=== PATIENT | female | born 1985 | race Caucasian/White ===

== ENCOUNTER → 2024-02-13 13:54 | Outpatient (REF) | payer OTHER, SELFPAY | LOC: RAD 13:54 | PROVIDERS: ATTENDING PHYSICIAN Advanced Practice Midwife | DX: R10.2 Pelvic and perineal pain (principal) | CPT/HCPCS: 76830; 76856 ==

== ENCOUNTER → 2025-01-13 13:56 | Outpatient (REF) | payer OTHER, SELFPAY | LOC: PNTC 13:56 | PROVIDERS: ATTENDING PHYSICIAN Obstetrics & Gynecology | DX: O48.0 Post-term pregnancy (principal) | CPT/HCPCS: 59025 ==

== ENCOUNTER 2025-01-13 16:20 | Inpatient (IN) | payer OTHER, SELFPAY ==
[2025-01-13 16:35] VITALS: BP 130/83; BMI 29.2
[2025-01-13 17:33] LABS: % Basophils 0.3 % (0-2); % Eosinophils 1.4 % (0-6); % Immature Granulocytes 0.6 % (0-0.5); % Lymphocytes 20.7 % (20.5-51.1); % Monocytes 4.5 % (1.7-9.3); % Neutrophils 72.5 % (42.2-75.2); Absolute Eosinophils 0.2 10^3/uL (0-0.7); Absolute Immature Granulocytes 0.1 10^3/uL (0-0.05); Absolute Lymphocytes 2.3 10^3/uL (1.2-3.4); Absolute Monocytes 0.5 10^3/uL (0.1-0.6); Hematocrit 35.6 % (37.0-47.0); Hemoglobin 12.5 g/dL (12.0-16.0); Mean Corp Hgb Conc. 35.1 g/dL (33.0-37.0); Mean Corpuscular Hgb 28.9 pg (27.0-31.0); Mean Corpuscular Volume 82.2 fL (81.0-99.0); Mean Platelet Volume 9.4 fL (7.4-10.4); Nucleated Red Blood Cells % 0 %; Platelet Count 233 10^3/uL (130-400); Red Blood Cell Count 4.33 10^6/uL (4.20-5.40); Red Cell Dist. Width 13.1 % (11.5-14.5)
[2025-01-13] MEDS: CYTOTEC 25 MICROGRAM VAG (17:41)
[2025-01-13] MEDS: LR 1000 IV (18:32)
[2025-01-13] MEDS: TYLENOL 1000 MG PO (20:20)
[2025-01-13] MEDS: CYTOTEC 50 MICROGRAM PO (21:58)
[2025-01-14] MEDS: CYTOTEC 50 MICROGRAM PO ×2 (01:59→05:56)
[2025-01-14] MEDS: STADOL 1 MG IV ×2 (03:45)
[2025-01-14] MEDS: TYLENOL 1000 MG PO (06:00)
[2025-01-14] MEDS: LR 1000 IV ×3 (08:30→16:05)
[2025-01-14] MEDS: FENTANYL/BUPIVACAINE 100 EPIDURAL ×2 (09:10→16:32)
[2025-01-14] MEDS: SUBLIMAZE 100 MCG EPIDURAL (09:10)
[2025-01-14] MEDS: PITOCIN 30 UNITS/NSS 500 ML IV (10:00)
[2025-01-14] MEDS: MOTRIN 600 MG PO (22:23)
[2025-01-14] MEDS: TYLENOL 650 MG PO (22:24)
[2025-01-15] MEDS: DILAUDID 2 MG PO (01:52)
[2025-01-15 05:43] LABS: Hematocrit 30.4 % (37.0-47.0); Hemoglobin 10.2 g/dL (12.0-16.0)
[2025-01-15] MEDS: MOTRIN 600 MG PO ×3 (05:43→21:53)
[2025-01-15] MEDS: TYLENOL 650 MG PO ×4 (05:43→21:53)
[2025-01-15] MEDS: PRENATAL PLUS 1 TABLET PO (08:05)
[2025-01-15] MEDS: FEOSOL 325 MG PO (08:05)
[2025-01-16] MEDS: MOTRIN 600 MG PO (04:22)
[2025-01-16] MEDS: SENOKOT-S 1 TABLET PO (04:23)
[2025-01-16] MEDS: TYLENOL 650 MG PO (04:23)
[2025-01-16] MEDS: FEOSOL 325 MG PO (08:11)
[2025-01-16] MEDS: PRENATAL PLUS 1 TABLET PO (08:11)
[2025-01-17 17:47] LABS: Syphilis/T. pallidum Ab Reflex Negative (Negative)
== END 2025-01-16 15:11 | disposition home or self-care (01) | DRG 807 ==
LOC: LDRP 16:20
PROVIDERS: Obstetrics & Gynecology; ADMITTING PHYSICIAN Obstetrics & Gynecology
PROC: 3E033VJ Introduction of Other Hormone into Peripheral Vein, Percutaneous Approach (ICD-10-PCS; 2025-01-13)
PROC: 3E0P7VZ Introduction of Hormone into Female Reproductive, Via Natural or Artificial Opening (ICD-10-PCS; 2025-01-13)
PROC: 0W8NXZZ Division of Female Perineum, External Approach (ICD-10-PCS; 2025-01-14)
PROC: 10907ZC Drainage of Amniotic Fluid, Therapeutic from Products of Conception, Via Natural or Artificial Opening (ICD-10-PCS; 2025-01-14)
PROC: 10E0XZZ Delivery of Products of Conception, External Approach (ICD-10-PCS; 2025-01-14)
PROC: 0KQM0ZZ Repair Perineum Muscle, Open Approach (ICD-10-PCS; 2025-01-14)
DX: O41.03X0 Oligohydramnios, third trimester, not applicable or unspecified (principal); Z37.0 Single live birth; Z3A.41 41 weeks gestation of pregnancy; O70.1 Second degree perineal laceration during delivery; O48.0 Post-term pregnancy; O76 Abnormality in fetal heart rate and rhythm complicating labor and delivery
CPT/HCPCS: 88307; 36415; 85014; 85018; 85025; 86780; 86850; 86900; 86901